=== PATIENT | male | born 1980 | race Two or more races ===

== ENCOUNTER 2017-05-01 22:20 | Emergency (ER) | payer OTHER ==
--- NOTE | 2017-05-01 22:25 | PDOC ---
History of Present Illness - General Chief Complaint: Pain, Acute Stated Complaint: FELL OFF HORSE PAIN LEFT HIP Time Seen by Provider: 05/01/17 22:24 - History of Present Illness Initial Comments: This 36-year-old man with a history of cyclic vomiting syndrome in the past, but no other significant past medical history, presents with history of falling off a horse yesterday. Patient was visiting in [place] when horse he was riding bucked and he fell off, striking his left lower back. He had no head or neck injury and denies loss of consciousness/headache/neck pain. Patient states that he was able to ambulate after the accident and in fact drove himself home from [place] today. He now presents with pain in his left lower back/buttock/pelvic area. He is able to ambulate although he this increases his back pain somewhat. He also describes discomfort in the right medial portion of his clavicle. Patient has a history of sternoclavicular separation in high school; patient did not directly impact clavicle on falling but has pain in the area now. He has no shortness of breath/anterior chest pain/ abdominal pain. He has had no nausea/vomiting. Past History - Past Medical History Allergies/Adverse Reactions: Allergies Allergy/AdvReac Type Severity Reaction Status Date / Time No Known Allergies Allergy Verified 05/01/17 22:21 Home Medications: Ambulatory Orders Diclofenac Sodium [Voltaren -] 75 mg PO BID #20 tablet. 05/01/17 Divalproex *ER* [Depakote *ER* -] 1,000 mg PO BID 05/01/17 Review of Systems - Review of Systems Able to Perform ROS?: Yes Comments:: 12 point review of systems is negative except for what is noted in the history of present illness *Physical Exam - Physical Exam Comments: GENERAL: Adult male, alert and oriented 3, in no acute distress HEAD: Normal with no signs of trauma. EYES: PERRLA, EOMI, sclera anicteric, conjunctiva clear. ENT: Ears normal, nares patent, oropharynx clear without exudates. Moist mucous membranes. NECK: Normal range of motion, supple without lymphadenopathy, JVD, or masses. CHEST WALL: Mild tenderness/minimal edema right sternoclavicular joint; no deformity of the right clavicle present no other chest wall tenderness; No crepitus or step offs palpated LUNGS: Breath sounds equal, clear to auscultation bilaterally. No wheezes, and no crackles. HEART:Regular rate and rhythm, normal S1 and S2 without murmur, rub or gallop. ABDOMEN:.normal bowel sounds No guarding,tenderness or rebound.No masses No distention. EXTREMITIES: Normal range of motion, no edema. No clubbing or cyanosis. No erythema, or tenderness. NEUROLOGICAL: Cranial nerves II through XII grossly intact. Normal speech. No focal neurological deficits. MUSCULOSKELETAL: Mild tenderness midline L4/5 without deformity palpated; mild tenderness of left paraspinal muscles lumbar region Mild tenderness of sacroiliac joint left side; mild tenderness left iliac crest No tenderness of the anterior left hip joint; mild pain at hip with abduction/adduction of left leg SKIN: Warm, Dry, normal turgor, no rashes or lesions noted. Progress Note - Progress Note Progress Note: This 36-year-old man presents with a history of falling off a horse yesterday. Patient has been able to ambulate and drove himself home from [place] today. He now has persistent pain in his left lower back/buttock/pelvic area. He has had no numbness/weakness/pain in either lower extremity. Lumbosacral spine and left pelvis plus hip x-ray performed. Also, because of patient's pain in the area previous sternoclavicular separation (right side), right clavicle x-ray performed. No evidence of acute fracture or dislocation present. Because of the patient's history of taking Depakote, although one dose of Toradol IM 60 mg was planned, this was ultimately not given because patient and his are concerned about additive renal toxicity of the 2 medications. A prescription for diclofenac 75 mg (#20) to be taken up to twice a day with food for pain and was sent to patient's pharmacy, patient likewise stated that he would probably not fill this prescription. Patient will follow-up with orthopedist(referral information for John Ocasio/ [facility] was given to the patient) *DC/Admit/Observation/Transfer Diagnosis at time of Disposition: Strain of muscle, fascia and tendon of lower back, sequela Contusion of left hip Qualifiers: Encounter type: initial encounter Qualified Code(s): S70.02XA - Contusion of left hip, initial encounter Contusion of right clavicle Qualifiers: Encounter type: initial encounter Qualified Code(s): S40.011A - Contusion of right shoulder, initial encounter - Discharge Dispostion Disposition: HOME Condition at time of disposition: Stable - Prescriptions Prescriptions: Diclofenac Sodium [Voltaren -] 75 mg PO BID #20 tablet.dr - Referrals Referrals: Oli Ocasio MD [Staff Physician] - Call tomorrow - Patient Instructions Printed Discharge Instructions: Contusion Additional Instructions: avoid strenuous activity for the next week motrin/aleve/tylenol as needed for mild to moderate pain diclofenac 75mg twice a day for more severe pain(take with food) followup with Dr Ocasio/ Dr Falcon(orthopedists) within 2-3 days
[2017-05-01 22:28] VITALS: BP 156/110; PULSE 97; TEMP 98.1; BMI 25.1
[2017-05-01] MEDS ORDERED: KETOROLAC TROMETHAMINE 60 MG/2 ML VIAL IM ONE (23:34)
[2017-05-01] MEDS ORDERED: KETOROLAC TROMETHAMINE 60 MG/2 ML VIAL ONE (23:37)
== END 2017-05-02 00:17 | disposition home or self-care (01) ==
LOC: FER 22:20
DX: S39.012A Strain of muscle, fascia and tendon of lower back, initial encounter (principal); S70.02XA Contusion of left hip, initial encounter; S40.011A Contusion of right shoulder, initial encounter; V80.010A Animal-rider injured by fall from or being thrown from horse in noncollision accident, initial encounter; Y93.52 Activity, horseback riding; Y92.9 Unspecified place or not applicable
CPT/HCPCS: 72100-TC; 73000-TC-RT; 73523-TC; 99281-25

== ENCOUNTER 2018-06-12 15:26 | Emergency (ER) | payer OTHER ==
[2018-06-12] MEDS ORDERED: SODIUM CHLORIDE 1,000 ML IV STA ×2 (15:37→16:40)
[2018-06-12 15:39] VITALS: TEMP 98.6; BMI 23.6
--- NOTE | 2018-06-12 15:46 | PDOC ---
Attending Attestation - Resident Resident Name: Saadia White - ED Attending Attestation I have performed the following: I have examined & evaluated the patient, The case was reviewed & discussed with the resident, I agree w/resident's findings & plan, Exceptions are as noted - HPI HPI: 06/12/18 18:07 37-year-old male with a history of an cannabinoid hyperemesis syndrome presents to the emergency department with epigastric abdominal pain and global onset generalized headache. Patient states symptoms are identical to previous exacerbations of his cannabinoid hyperemesis syndrome. Smokes marijuana 1x/wk - Physicial Exam PE: 06/12/18 15:46 agree with resident exam - Medical Decision Making 06/12/18 17:19 37yo M hx cannabinoid hypermesis syndrome presents to the ED with N/V, headache , similar to previous exacerbations. 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 Abd exam with no ttp. Lipase negative. Will hydrate pt with 2L NS, treat sxs, PO chall and reassess. 06/12/18 18:31 Pt feeling much better, requests DC home, tolerating PO. BP was elevated on arrival, but pt was vomiting. Rpt BP 170s/90s - instructed pt to discuss with PMD as he needs a repeat BP check Pt well appearing I discussed the physical exam findings, ancillary test results and final diagnoses with the patient. I answered all of the patient's questions. The patient was satisfied with the care received and felt comfortable with the discharge plan and treatment plan. The patient will call their primary care physician within 24 hours to arrange follow-up and will return to the Emergency Department with any new, persistent or worsening symptoms.
[2018-06-12 16:01] LABS: BASO % 1.5 % (0-2.0); HEMOGLOBIN 17.3 GM/dl (11.7-16.9); LYMPH % 14.1 % (8-40); MCH 30.8 pg (25.7-33.7); MCHC 33.2 g/dl (32.0-35.9); MEAN CELL VOLUME 92.7 fl (80-96); MEAN PLT VOLUME 9.5 fl (7.5-11.1); MONO % 3.9 % (3.8-10.2); NEUT % 80.5 % (42.8-82.8); PLATELET COUNT 431 K/MM3 (134-434); RBC 5.61 M/mm3 (4.00-5.60); RDW 12.9 % (11.9-15.9); WHITE BLOOD COUNT 16.3 K/mm3 (4.0-10.8)
--- NOTE | 2018-06-12 16:01 | PDOC ---
History of Present Illness - General Chief Complaint: Nausea/Vomiting Stated Complaint: VOMITING Time Seen by Provider: 06/12/18 15:38 History Source: Patient Exam Limitations: No Limitations - History of Present Illness Initial Comments: 06/12/18 15:50 This is a 37 YOM with long-standing h/o cannabinoid hyperemesis/cyclic vomiting/ abdominal migraines, WENDY, and GERD (takes prilosec) who p/w upper abdominal pain , headache with photophobia and phonophobia, and about 15 episodes NBNB vomiting onset this morning which is exactly the same as his prior flares of the aforementioned diagnoses. He was last seen in the [facility] in 02/2018 for the same symptoms (at which time he also had mild hyperglycemia and an WENDY and he did not want to stay in the hospital). He has not taken any medications for his symptoms today because he knew he would not be able to keep them down. He normally gets relief in the ED with IVF and Reglan and Benadryl. He notes that at home, he takes prophylactic Depakote 1000mg bid, and he was not able to take his dose this morning 2/2 vomiting. (He used to be better controlled on 200 mg Depakote bid but his outpatient provider decreased the dose in January, and ever since this timeIf he has a milder episode at home, he sometimes tries a hot shower, Reglan, and Benadryl with relief. He has not run out of medications lately. He denies any f/c, chest pain, SOB, SOB, neck pain, diarrhea, constipation, black/bloody stool, or change in appetite or other symptoms prior to the onset this morning. He smokes marijuana about once every week and this is less than he used to smoke. Past History - Past Medical History Allergies/Adverse Reactions: Allergies Allergy/AdvReac Type Severity Reaction Status Date / Time No Known Allergies Allergy Verified 12/30/17 23:18 Home Medications: Ambulatory Orders Divalproex *ER* [Depakote *ER* -] 1,000 mg PO BID 05/01/17 COPD: No GI Disorders: Yes (CYCLIC VOMITING) - Suicide/Smoking/Psychosocial Hx Smoking History: Current some day smoker Have you smoked in the past 12 months: Yes Number of Cigarettes Smoked Daily: 2 Information on smoking cessation initiated: Yes 'Breaking Loose' booklet given: 05/02/17 Hx Alcohol Use: No Drug/Substance Use Hx: Yes (MARIJUANA) Substance Use Type: Marijuana Review of Systems - Review of Systems Able to Perform ROS?: Yes Constitutional: Yes: Malaise. No: Chills, Fever, Unexplained wgt Loss HEENTM: No: Nose Congestion, Throat Pain Respiratory: No: Cough, Shortness of Breath Cardiac (ROS): No: Chest Pain, Palpitations ABD/GI: Yes: Nausea, Vomiting, Other (abdominal discomfort). No: Constipated, Diarrhea : No: Burning, Dysuria Musculoskeletal: No: Back Pain, Neck Pain Integumentary: No: Bruising, Rash Neurological: Yes: Headache, Other (photophobia, phonophobia). No: Numbness, Tingling, Weakness, Dizziness Endocrine: No: Unexplained Weight Gain, Unexplained Weight Loss *Physical Exam - Vital Signs Last Vital Signs Temp Pulse Resp BP Pulse Ox 98.6 F 93 H 18 194/118 98 06/12/18 15:28 06/12/18 15:28 06/12/18 15:28 06/12/18 15:28 06/12/18 15:28 Heart Score/ECG Review #1 06/12/18 15:45 NSR, rate of 88, normal axis and intervals, meets criteria for LVH but this is likely body habitus ED Treatment Course - LABORATORY CBC & Chemistry Diagram: 06/12/18 15:30 06/12/18 15:30 Medical Decision Making - Medical Decision Making Pt with cyclic vomiting/abdominal migraine/cannabis hyperemesis p/w abdominal pain, nausea, vomiting like their prior flares. Initial Vital Signs Temp Pulse Resp BP Pulse Ox 98.6 F 93 H 18 194/118 98 06/12/18 15:28 06/12/18 15:28 06/12/18 15:28 06/12/18 15:28 06/12/18 15:28 Exam: As noted in Physical Exam section.appears uncomfortable, holding upper abdomen with arms, intermittently actively vomiting (NBNB) DDX IBNLT: Gastroparesis (e.g. precipitated by stress, infection, etc), DKA, HHS , infection/inflammation/sepsis (i.e. UTI/pyelonephritis, PNA, bronchitis, skin infection, pancreatitis, cholecystitis, etc), EtOH or drug use or withdrawal, biliary tract obstruction, SBO, ACS, etc. W/U ordered: FSBG CBCD CMP Mg Phos Serum Acetone Trop CK CKMB ABG EKG CXR UA UCx Lactate BCx hCG Initial TX ordered: IVF Reglan Benadryl erythromycin/azithromycin Zofran Haldol EKG: Reviewed; results as noted in ECG Review section. CXR: Laboratory Tests 06/12/18 06/12/18 15:30 15:30 WBC 16.3 H RBC 5.61 H Hgb 17.3 H Hct 52.0 H MCV 92.7 MCH 30.8 MCHC 33.2 RDW 12.9 Plt Count 431 MPV 9.5 Absolute Neuts (auto) 13.2 Neutrophils % 80.5 Lymphocytes % 14.1 D Monocytes % 3.9 Eosinophils % 0.0 Basophils % 1.5 Sodium 136 Potassium 4.4 Chloride 98 Carbon Dioxide 24 Anion Gap 14 BUN 17 Creatinine 1.6 H Creat Clearance w eGFR 48.62 Random Glucose 141 H Calcium 11.0 H Magnesium 1.9 Total Bilirubin 0.9 AST 21 D ALT 24 D Alkaline Phosphatase 70 Total Protein 9.9 H Albumin 5.4 H Lipase 124 Vital Signs Temperature 98.6 F 06/12/18 15:28 Pulse Rate 95 H 06/12/18 17:00 Respiratory Rate 18 06/12/18 17:00 Blood Pressure 172/92 06/12/18 17:00 O2 Sat by Pulse Oximetry (%) 96 06/12/18 17:00 06/12/18 18:14 Patient got significant relief with NS x2 liters and Reglan. This patient has gotten significant relief of symptoms while in the ED. On last reassessment, vitals are wnl, pain is reasonably controlled, and repeat abdominal exam is benign. Workup is not concerning for emergency-level pathology at this time. This patient is appropriate for discharge with close outpatient follow up. They are comfortable with this plan and will follow up with their primary care provider in 1-3 days. Specific return precautions are discussed and they will come back to the ER if necessary. *DC/Admit/Observation/Transfer Diagnosis at time of Disposition: Cannabinoid hyperemesis syndrome, WENDY (acute kidney injury) Leukocytosis Qualifiers: Leukocytosis type: unspecified Qualified Code(s): D72.829 - Elevated white blood cell count, unspecified - Discharge Dispostion Condition at time of disposition: Good Decision to Admit order: No - Referrals Referrals: Luna Carrasco [Primary Care Provider] - - Patient Instructions Printed Discharge Instructions: DI for Vomiting -- Adult, DI for Abdominal Pain -Adult Additional Instructions: YOU WERE SEEN IN THE ER FOR VOMITING AND ABDOMINAL PAIN LIKE YOUR PRIOR FLARE- UPS. WE GAVE YOU MEDICATIONS IN THE ER WHICH HELPED YOUR SYMPTOMS, AND CHECKED YOUR LAB WORK. YOU HAVE ELEVATED KIDNEY LEVELS (CREATININE) BUT THIS IS NOT HIGH IT WAS FOR YOU THE LAST TIME YOU WERE SEEN HERE IN THE ER. AFTER OUR ASSESSMENT, WE DO NOT BELIEVE YOU ARE HAVING A MEDICAL EMERGENCY AT THIS TIME, AND WE BELIEVE YOU ARE SAFE TO GO HOME. PLEASE STOP SMOKING MARIJUANA COMPLETELY AND SEE IF THIS RESOLVES YOUR FREQUENT FLARE-UPS. TAKE A MULTI- VITAMIN AND STAY WELL-HYDRATED. TAKE YOUR DEPAKOTE PRESCRIBED AND USE THE MEDICATIONS YOU HAVE ALREADY AT YOUR HOUSE FOR YOUR SYMPTOMS IF NEEDED. PLEASE FOLLOW UP WITH YOUR PRIMARY CARE PROVIDER IN 1-3 DAYS. CALL THEIR CLINIC SOON POSSIBLE, TELL THEM YOU WERE SEEN IN THE ER, AND TELL THEM YOU NEED AN APPOINTMENT. PLEASE TALK WITH YOUR DOCTOR ABOUT CHANGING YOUR DEPAKOTE DOSE BACK. IF YOU HAVE ANY NEW OR WORSENING SYMPTOMS, ESPECIALLY VOMITING BLOOD, RECTAL BLEEDING, SEVERE ABDOMINAL PAIN, OR OTHER SYMPTOMS, PLEASE COME BACK TO THE ER AT ANY TIME (24 HOURS A DAY). IF YOU ARE HAVING SEVERE OR LIFE THREATENING SYMPTOMS, OR SYMPTOMS THAT MAKE IT UNSAFE TO DRIVE OR HAVE SOMEONE DRIVE YOU, PLEASE CALL 911. - Post Discharge Activity
[2018-06-12 16:14] LABS: ALBUMIN 5.4 g/dl (3.5-5.0); ALK PHOS 70 U/L (32-92); ANION GAP 14 MMOL/L (8-16); BILIRUBIN,TOTAL 0.9 mg/dl (0.2-1.0); BLOOD UREA NITROGEN 17 mg/dl (7-18); CHLORIDE 98 mmol/L (98-107); CO2 24 mmol/L (22-28); CREATININE 1.6 mg/dl (0.6-1.3); GLUCOSE,RANDOM 141 mg/dl (74-106); MAGNESIUM 1.9 mg/dL (1.8-2.4); POTASSIUM 4.4 mmol/L (3.5-5.1); SGOT/AST 21 U/L (10-42); SGPT/ALT 24 U/L (10-40); SODIUM 136 mmol/L (136-145); TOT PROT 9.9 g/dl (6.4-8.3)
[2018-06-12] MEDS ORDERED: METOCLOPRAMIDE HCL INJECTION 10 MG/2 ML VIAL IVPUSH ONE (16:41)
[2018-06-12 17:04] VITALS: BP 172/92; PULSE 95
[2018-06-12 17:42] LABS: LIPASE 124 U/L (73-393)
--- NOTE | 2018-06-14 11:43 | EKG ---
Test Reason : Blood Pressure : / mmHG Vent. Rate : 088 BPM Atrial Rate : 088 BPM P-R Int : 148 ms QRS Dur : 088 ms QT Int : 356 ms P-R-T Axes : 063 085 049 degrees QTc Int : 430 ms NORMAL SINUS RHYTHM MINIMAL VOLTAGE CRITERIA FOR LVH, MAY BE NORMAL VARIANT BORDERLINE ECG NO PREVIOUS ECGS AVAILABLE Confirmed by BRYSON HERNANDEZ MD ([id number]) on 06/14/2018 11:42:52 AM Referred By: Confirmed By:BRYSON HERNANDEZ MD
== END 2018-06-12 18:26 | disposition home or self-care (01) ==
LOC: FER 15:26 → SUPCPDRO 15:26 → FER 18:26
PROC: 3E033GC Introduction of Other Therapeutic Substance into Peripheral Vein, Percutaneous Approach (ICD-10-PCS; principal; 2018-06-12)
PROC: 3E0337Z Introduction of Electrolytic and Water Balance Substance into Peripheral Vein, Percutaneous Approach (ICD-10-PCS; 2018-06-12)
DX: D72.829 Elevated white blood cell count, unspecified (principal); F12.188 Cannabis abuse with other cannabis-induced disorder; S37.009A Unspecified injury of unspecified kidney, initial encounter; F17.210 Nicotine dependence, cigarettes, uncomplicated
CPT/HCPCS: 36415; 80053; 83690; 83735; 85025; 93005; 99283-25; J7030

== ENCOUNTER 2018-08-13 07:07 | Emergency (ER) | payer OTHER ==
[2018-08-13 07:16] VITALS: TEMP 99.3; BMI 23.6
[2018-08-13] MEDS ORDERED: SODIUM CHLORIDE 1,000 ML IV STA ×2 (07:19→08:44)
[2018-08-13] MEDS ORDERED: ONDANSETRON 4 MG/2 ML VIAL IVPB ONE (07:19)
--- NOTE | 2018-08-13 07:24 | PDOC ---
History of Present Illness - General Chief Complaint: Nausea/Vomiting Stated Complaint: NAUSEA/VOMITING Time Seen by Provider: 08/13/18 07:10 History Source: Patient Exam Limitations: No Limitations - History of Present Illness Travel History: No Initial Comments: 08/13/18 07:20 38 y/o male with past medical history of cyclical vomiting presents with vomiting sice 3 pm yesterday. Denies traveling, sick contacts, fall or trauma. No diarrhea. No blood in vomit. No fever or chills. Denies back pain, chest pain or SOB. Has not taken anything for this. Feels dehydrated. States his kidney function is usually elevated and signs himself out AMA. Timing/Duration: reports: constant Quality: reports: moderate Pain Radiation: reports: no radiation Activities at Onset: reports: none Treatment Prior to Arrive: worse with: analgesics, antacids, cold pack, heat, laxative, enema, other Aggravating Factors: improves with: None Past History - Past Medical History Allergies/Adverse Reactions: Allergies Allergy/AdvReac Type Severity Reaction Status Date / Time No Known Allergies Allergy Verified 08/13/18 07:11 Home Medications: Ambulatory Orders Divalproex *ER* [Depakote *ER* -] 1,000 mg PO DAILY 05/01/17 COPD: No GI Disorders: Yes (CYCLIC VOMITING) - Suicide/Smoking/Psychosocial Hx Smoking History: Current some day smoker Have you smoked in the past 12 months: Yes Number of Cigarettes Smoked Daily: 2 Information on smoking cessation initiated: Yes 'Breaking Loose' booklet given: 08/13/18 Hx Alcohol Use: Yes Drug/Substance Use Hx: Yes Substance Use Type: Marijuana Review of Systems - Review of Systems Able to Perform ROS?: Yes Is the patient limited Ivorian proficient: No Constitutional: No: Chills, Fever Respiratory: No: Cough, Shortness of Breath Cardiac (ROS): No: Chest Pain ABD/GI: Yes: Nausea, Vomiting, Abdominal cramping. No: Diarrhea : No: Burning, Dysuria Musculoskeletal: No: Back Pain All Other Systems: Reviewed and Negative *Physical Exam - Vital Signs Last Vital Signs Temp Pulse Resp BP Pulse Ox 99.3 F 133 H 18 177/123 H 97 08/13/18 07:08 08/13/18 07:08 08/13/18 07:08 08/13/18 07:08 08/13/18 07:08 - Physical Exam General Appearance: Yes: Nourished, Appropriately Dressed, Mild Distress. No: Disheveled HEENT: positive: EOMI, CRYSTAL, Normal ENT Inspection, Normal Voice, Symmetrical, Pharynx Normal Neck: positive: Trachea midline, Normal Thyroid, Supple. negative: Tender, Rigid, Carotid bruit Respiratory/Chest: positive: Lungs Clear, Normal Breath Sounds. negative: Chest Tender, Respiratory Distress Cardiovascular: positive: Regular Rhythm, S1, S2, Tachycardia. negative: Regular Rate, Edema, JVD, Murmur Vascular Pulses: Femoral (R): 4+, Femoral (L): 4+, Carotid (R): 4+, Carotid (L) : 4+, Dorsalis-Pedis (R): 4+, Doralis-Pedis (L): 4+ Gastrointestinal/Abdominal: positive: Normal Bowel Sounds, Flat, Soft. negative : Tender, Organomegaly, Pulsatile Mass, Tenderness (soft non tender, no RLQ, LLQ or RUQ or LUQ tenderness, +BS, no mid epigastric tenderness noted) Lymphatic: negative: Adenopathy, Tenderness, Other Musculoskeletal: positive: CVA Tenderness (L). negative: CVA Tenderness Extremity: positive: Normal Capillary Refill, Normal Inspection, Normal Range of Motion. 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 Patient is in agreement with plan. Pt is feeling better. No vomiting Discussed labs with patient, elevated Cr and Calcium Pt refuses admission, risks and benefits discussed with patient, pt states he sees a specialist. Pt signed out AMA *DC/Admit/Observation/Transfer Diagnosis at time of Disposition: Hypercalcitonemia Renal failure, acute Qualifiers: Acute renal failure type: unspecified Qualified Code(s): N17.9 - Acute kidney failure, unspecified Cyclic vomiting syndrome Qualifiers: Vomiting Intractability: intractable Nausea presence: with nausea Qualified Code(s): G43.A1 - Cyclical vomiting, intractable - Discharge Dispostion Disposition: AGAINST MEDICAL ADVICE Condition at time of disposition: Stable Decision to Admit order: No - Referrals - Patient Instructions Printed Discharge Instructions: DI for Vomiting -- Adult, Acute Renal Failure, DI for Hypercalcemia Additional Instructions: Fluids, rest, Tylenol If worsen return to ER for admission - Post Discharge Activity
[2018-08-13] MEDS ORDERED: ONDANSETRON 4 MG/2 ML VIAL ONE (07:27)
[2018-08-13 08:48] LABS: ALBUMIN 5.5 g/dl (3.5-5.0); ALK PHOS 72 U/L (32-92); ANION GAP 22 MMOL/L (8-16); BILIRUBIN,TOTAL 0.9 mg/dl (0.2-1.0); BLOOD UREA NITROGEN 17 mg/dl (7-18); CALCIUM 11.3 mg/dl (8.4-10.2); CHLORIDE 93 mmol/L (98-107); CO2 23 mmol/L (22-28); CREATININE 3.1 mg/dl (0.6-1.3); GLUCOSE,RANDOM 167 mg/dl (74-106); POTASSIUM 4.5 mmol/L (3.5-5.1); SGOT/AST 30 U/L (10-42); SGPT/ALT 23 U/L (10-40); SODIUM 138 mmol/L (136-145); TOT PROT 9.7 g/dl (6.4-8.3)
[2018-08-13 08:59] LABS: BASO % 0.3 % (0-2.0); HEMATOCRIT 51.8 % (35.4-49); HEMOGLOBIN 17.1 GM/dl (11.7-16.9); LYMPH % 11.1 % (8-40); MCH 30.6 pg (25.7-33.7); MEAN CELL VOLUME 92.7 fl (80-96); MEAN PLT VOLUME 10.4 fl (7.5-11.1); MONO % 2.7 % (3.8-10.2); NEUT % 85.9 % (42.8-82.8); PLATELET COUNT 397 K/MM3 (134-434); RBC 5.58 M/mm3 (4.00-5.60); RDW 13.8 % (11.9-15.9); WHITE BLOOD COUNT 19.6 K/mm3 (4.0-10.8)
[2018-08-13 09:20] VITALS: BP 177/107; PULSE 97
[2018-08-13 12:12] LABS: LIPASE 198 U/L (73-393)
== END 2018-08-13 09:27 | disposition left against medical advice (07) ==
LOC: FER 07:07
PROC: 3E033GC Introduction of Other Therapeutic Substance into Peripheral Vein, Percutaneous Approach (ICD-10-PCS; principal; 2018-08-13)
PROC: 3E0337Z Introduction of Electrolytic and Water Balance Substance into Peripheral Vein, Percutaneous Approach (ICD-10-PCS; 2018-08-13)
DX: R82.994 Hypercalciuria (principal); N17.9 Acute kidney failure, unspecified; G43.A1 Cyclical vomiting, in migraine, intractable
CPT/HCPCS: 36415; 80053; 83690; 85025; 99282-25; J7030

== ENCOUNTER 2018-08-14 09:55 | Inpatient (IN) | payer OTHER ==
[2018-08-14] MEDS ORDERED: SODIUM CHLORIDE 1,000 ML IV STA (09:59)
--- NOTE | 2018-08-14 10:01 | PDOC ---
History of Present Illness - General Chief Complaint: Nausea/Vomiting Stated Complaint: DEHYDRATION, N/V Time Seen by Provider: 08/14/18 09:56 - History of Present Illness Initial Comments: 08/14/18 10:23 38yo M hx abdominal migraines, cyclical vomiting presents to the ED with vomiting, diffuse body cramping, and feeling dehydrated. Pt was seen here for the same yesterday, found to have an WENDY with nursing clerk to 3.1 (from 1.5) as well as hypercalcemia. Pt was offered admission given metabolic abnormalities but felt better and elected to go home. Pt reports 3 more episodes of NB emesis since yesterday. Reports he feels cramping all over his body. Was previously on 2 grams of depakote for his abd migraines which was cut down last year to 1G. He notes starting a new migraine medication Aimovig last month which has controlled his migraines but not his cyclical vomiting. Pt also reports smoking marijuana a few days ago prior to symptoms. ADmits he has been told in the past that this is contributing to his cyclical vomiting but states it has been difficult to give up. Denies focal abd pain. Last BM was 2 days ago. Denies fevers, chills, cp, sob, headache, LE edema, calf pain. Past History - Past Medical History Allergies/Adverse Reactions: Allergies Allergy/AdvReac Type Severity Reaction Status Date / Time No Known Allergies Allergy Verified 08/13/18 07:11 Home Medications: Ambulatory Orders Divalproex *ER* [Depakote *ER* -] 1,000 mg PO DAILY 05/01/17 Erenumab-Aooe [Aimovig Autoinjector] 70 mg SQ MONTHLY 08/14/18 COPD: No GI Disorders: Yes (CYCLIC VOMITING) - Suicide/Smoking/Psychosocial Hx Smoking History: Current every day smoker Have you smoked in the past 12 months: Yes Number of Cigarettes Smoked Daily: 2 Information on smoking cessation initiated: Yes 'Breaking Loose' booklet given: 08/14/18 Hx Alcohol Use: Yes Drug/Substance Use Hx: Yes Substance Use Type: Marijuana Review of Systems - Review of Systems Comments:: 08/14/18 10:30 GENERAL/CONSTITUTIONAL: No fever or chills. No weakness. Diffuse abd pain HEAD, EYES, EARS, NOSE AND THROAT: No change in vision. No ear pain or discharge. No sore throat. GASTROINTESTINAL: + nausea, vomiting, no diarrhea or constipation. GENITOURINARY: No dysuria, frequency, or change in urination. CARDIOVASCULAR: No chest pain or shortness of breath. RESPIRATORY: No cough, wheezing, or hemoptysis. MUSCULOSKELETAL: No joint or muscle swelling or pain. No neck or back pain. SKIN: No rash NEUROLOGIC: No headache, vertigo, loss of consciousness, or change in strength/ sensation. ENDOCRINE: No increased thirst. No abnormal weight change. HEMATOLOGIC/LYMPHATIC: No anemia, easy bleeding, or history of blood clots. ALLERGIC/IMMUNOLOGIC: No hives or skin allergy. *Physical Exam - Physical Exam Comments: 08/14/18 10:30 GENERAL: Awake, alert, and fully oriented, appears uncomfortable. Thin, eyes sunken in EYES: PERRLA, EOMI, sclera anicteric, conjunctiva clear ENT: Nares patent, oropharynx clear without exudates. Dry MM NECK: Normal ROM, supple, no lymphadenopathy, JVD, or masses LUNGS: Breath sounds equal, clear to auscultation bilaterally. No wheezes, and no crackles HEART: Tachycardic but regular, normal S1 and S2, no murmurs, rubs or gallops ABDOMEN: Soft, nontender, normoactive bowel sounds. No guarding, no rebound. No masses EXTREMITIES: Normal range of motion, no edema. No clubbing or cyanosis. No cords, erythema, or tenderness NEUROLOGICAL: Normal speech, cranial nerves intact, 5/5 strength in all 4 extremities, normal sensation to light touch in all 4 extremities, normal gait SKIN: Warm, Dry, normal turgor, no rashes or lesions noted. Heart Score/ECG Review #1 08/14/18 11:04 Twelve-lead EKG was performed and reviewed by me. Sinus tachycardia, rate 107. Normal axis. No ST elevations. ED Treatment Course - LABORATORY CBC & Chemistry Diagram: 08/14/18 10:16 08/14/18 10:16 Medical Decision Making - Medical Decision Making 08/14/18 10:32 38yo M hx abd migraines, cyclical vomiting prsents to the ED with vomiting, diffuse body cramping. Vitals with tachycardia and HTN which pt has had in the past but is not on medication for. Pt looks dehydrated on exam. No focal abd ttp - states cramping abd discomfort is diffuse and feels like his typical abd migraines. Cannabinoid use likely also contributing to sxs. Pt had WENDY to 3.1 and hypercalcemia yesterday which is likely source of cramping, will initiate fluids and anticipate admission. Pt amenable to stay today. 08/14/18 11:01 Ca 11.2, corrected calcium is 9.5 given elevated albumen. Was wnl yesterday too once corrected Labs markedly abnormal however - leukocytosis to 27, nursing clerk up to 4.5, AG 22 AG likely 2/2 WENDY -> metabolic acidosis Ordered CTAP/CXR to r/o mass or infectious cause of leukocytosis and vomiting Lipase normal yesterday 2nd liter LR ordered EKG sinus tachycardia, no ischemia 08/14/18 13:33 CTAP negative for acute pathology Case discussed with Dr. Borges at pt's request who will see pt Case discussed with PULP GRINDER Carlos, she requests we order diltiazem 30mg given elevated BP and HR Pt accepted for admission Case discussed in detail with admitting physician including history, physical exam and ancillary studies. Admitting physician has assumed care for the patient, will follow all pending diagnostics and will complete the evaluation and treatment. *DC/Admit/Observation/Transfer Diagnosis at time of Disposition: Renal failure, acute, Vomiting, Leukocytosis - Discharge Dispostion Condition at time of disposition: Stable Decision to Admit order: Yes - Referrals - Patient Instructions - Post Discharge Activity - Attestations Physician Attestion: 08/14/18 13:46 I, Dr. Adolfo Smallwood MD, attest that this document has been prepared under my direction and personally reviewed by me in its entirety. I further attest, that it accurately reflects all work, treatment, procedures and medical decision -making performed by me.
[2018-08-14] MEDS ORDERED: LACTATED RINGERS SOLUTION 1000 ML INFUS.BAG IV ONE (10:36)
[2018-08-14] MEDS ORDERED: METOCLOPRAMIDE HCL INJECTION 10 MG/2 ML VIAL IVPB ONE (10:38)
[2018-08-14] MEDS ORDERED: METOCLOPRAMIDE HCL INJECTION 10 MG/2 ML VIAL ONE (10:40)
[2018-08-14 10:42] LABS: ALBUMIN 6.1 g/dl (3.5-5.0); ALK PHOS 75 U/L (32-92); ANION GAP 22 MMOL/L (8-16); BILIRUBIN,TOTAL 0.9 mg/dl (0.2-1.0); BLOOD UREA NITROGEN 31 mg/dl (7-18); CALCIUM 11.2 mg/dl (8.4-10.2); CHLORIDE 88 mmol/L (98-107); CO2 19 mmol/L (22-28); CREATININE 4.5 mg/dl (0.6-1.3); GLUCOSE,RANDOM 195 mg/dl (74-106); HEMATOCRIT 54.8 % (35.4-49); HEMOGLOBIN 18.4 GM/dl (11.7-16.9); MCH 30.8 pg (25.7-33.7); MCHC 33.6 g/dl (32.0-35.9); MEAN CELL VOLUME 91.7 fl (80-96); MEAN PLT VOLUME 9.8 fl (7.5-11.1); PLATELET COUNT 383 K/MM3 (134-434); POTASSIUM 4.2 mmol/L (3.5-5.1); RBC 5.97 M/mm3 (4.00-5.60); RDW 13.3 % (11.9-15.9); SGOT/AST 37 U/L (10-42); SGPT/ALT 26 U/L (10-40); SODIUM 129 mmol/L (136-145); TOT PROT 10.5 g/dl (6.4-8.3); WHITE BLOOD COUNT 26.7 K/mm3 (4.0-10.8)
[2018-08-14 11:04] LABS: PLATELET ESTIMATE ADEQUATE
[2018-08-14] MEDS ORDERED: dilTIAZem HCL 30 MG TABLET (FP) PO ONE (13:30)
[2018-08-14] MEDS ORDERED: dilTIAZem HCL 30 MG TABLET (FP) ONE (13:32)
[2018-08-14] MEDS ORDERED: ERENUMAB AOOE 70 MG SQ SCH (13:45)
--- NOTE | 2018-08-14 13:48 | HP ---
CHIEF COMPLAINT: Vomiting PCP: Sara Granados Neuro: Dr. 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 Presented to the ED yesterday with complaint of vomiting, dehydration, and diffuse body crams. tly started on Erenumab-Aooe/Aimovig by his neurologist for abdominal migraine. Presents today to the ED with a complaint of with vomiting, diffuse body cramping, and feeling dehydrated. Patient was seen yesterday in the ED for the same complaint. His Cr was noted to be 3.1 (from 1.5) and it was recommended patient be admitted to the hospital. The patient refused. He was treated with IV fluids and Zofran. Patient went home and the vomiting continued so he returned to the ED today. Patient admits to marijuana use a few days ago. Denies fevers, chills, cp, sob, headache, LE edema, calf pain. Denies abdominal pain. ER course was notable for: (1) BP 180/115, p 100 (2) WBC 26.7 (3) BUN/Cr 31/4.5 (baseline 1.6) Recent Travel: No PAST MEDICAL HISTORY: Cyclic vomiting secondary to marijuana use Abdominal migraine PAST SURGICAL HISTORY: Social History: Smoking: current Alcohol: yes Drugs: nikunjana Family History: Allergies No Known Allergies Allergy (Verified 08/13/18 07:11) HOME MEDICATIONS: Home Medications Medication Instructions Recorded Divalproex *ER* [Depakote *ER* -] 1,000 mg PO DAILY 05/01/17 Erenumab-Aooe [Aimovig 70 mg SQ MONTHLY 08/14/18 Autoinjector] REVIEW OF SYSTEMS CONSTITUTIONAL: Absent: fever, chills, diaphoresis, generalized weakness, malaise, loss of appetite, weight change HEENT: Absent: rhinorrhea, nasal congestion, throat pain, throat swelling, difficulty swallowing, mouth swelling, ear pain, eye pain, visual changes CARDIOVASCULAR: Absent: chest pain, syncope, palpitations, irregular heart rate, lightheadedness , peripheral edema RESPIRATORY: Absent: cough, shortness of breath, dyspnea with exertion, orthopnea, wheezing, stridor, hemoptysis GASTROINTESTINAL: Absent: abdominal pain, abdominal distension, nausea, vomiting, diarrhea, constipation, melena, hematochezia GENITOURINARY: +nausea, vomiting Absent: dysuria, frequency, urgency, hesitancy, hematuria, flank pain, genital pain MUSCULOSKELETAL: +body aches Absent: myalgia, arthralgia, joint swelling, back pain, neck pain SKIN: Absent: rash, itching, pallor HEMATOLOGIC/IMMUNOLOGIC: Absent: easy bleeding, easy bruising, lymphadenopathy, frequent infections ENDOCRINE: Absent: unexplained weight gain, unexplained weight loss, heat intolerance, cold intolerance NEUROLOGIC: Absent: headache, focal weakness or paresthesias, dizziness, unsteady gait, seizure, mental status changes, bladder or bowel incontinence PSYCHIATRIC: Absent: anxiety, depression, suicidal or homicidal ideation, hallucinations. PHYSICAL EXAMINATION Vital Signs - 24 hr 08/14/18 08/14/18 10:20 12:25 Temperature 97.6 F Pulse Rate 115 H Pulse Rate [ 100 H Left Apical] Respiratory 19 18 Rate Blood Pressure 145/115 H Blood Pressure 180/115 H [Left Arm] O2 Sat by Pulse 98 99 Oximetry (%) GENERAL: Awake, alert, and fully oriented, in no acute distress. HEAD: Normal with no signs of trauma. EYES: Pupils equal, round and reactive to light, extraocular movements intact, sclera anicteric, conjunctiva clear. No lid lag. EARS, NOSE, THROAT: Ears normal, nares patent, oropharynx clear without exudates. Moist mucous membranes. NECK: Normal range of motion, supple without lymphadenopathy, JVD, or masses. LUNGS: Breath sounds equal, clear to auscultation bilaterally. No wheezes, and no crackles. No accessory muscle use. HEART: Regular rate and rhythm, normal S1 and S2 without murmur, rub or gallop. ABDOMEN: Soft, nontender, not distended, normoactive bowel sounds, no guarding, no rebound, no masses. No hepatomegaly or splenomegaly. MUSCULOSKELETAL: Normal range of motion at all joints. No bony deformities or tenderness. No CVA tenderness. UPPER EXTREMITIES: 2+ pulses, warm, well-perfused. No cyanosis. No clubbing. No peripheral edema. LOWER EXTREMITIES: 2+ pulses, warm, well-perfused. No calf tenderness. No peripheral edema. NEUROLOGICAL: Cranial nerves II-XII intact. Normal speech. Normal gait. PSYCHIATRIC: Cooperative. Good eye contact. Appropriate mood and affect. SKIN: Warm, dry, normal turgor, no rashes or lesions noted, normal capillary refill. Laboratory Results - last 24 hr 08/14/18 08/14/18 08/14/18 10:16 10:16 10:16 WBC Cancelled 26.7 H Corrected WBC (auto) Cancelled RBC Cancelled 5.97 H Hgb Cancelled 18.4 H Hct Cancelled 54.8 H MCV Cancelled 91.7 MCH Cancelled 30.8 MCHC Cancelled 33.6 RDW Cancelled 13.3 Plt Count Cancelled 383 MPV Cancelled 9.8 Absolute Neuts (auto) 22.4 Neutrophils % No Result Required. Neutrophils % (Manual) 85.0 H Lymphocytes % No Result Required. 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 Admitted for acute kidney injury. Acute kidney injury --baseline 1.6; Cr 3.1 yesterday in ED, 4.5 today at time of admission; this evening 2.6 Hypertensive urgency --BP 180/115 on admission --patient states his blood pressure is high only when he has an episode of cyclic vomiting, does not take regular meds --hydralazine 10mg IVP x 1; 10mg PO TID Rhabdomyalosis --CPK 931 drawn after 1L fluids in --continue IV fluids Hyponatremia --Na 131 corrected Hypomagnesemia --replete Hyperphosphatemia --continue to trend Cyclic vomiting --Utox +marijuana --Zofran PRN --IV fluids Abdominal migraine --seen and evaluated by Dr. Monroy, neuro; start Depacon 500mg IVP q8h --started on Aimovig 70mg subq qmonthly last week FEN Fluids: NS @ 50mL/hr Electrolytes: replete as indicated Nutrition: NPO (tried clears, could not tolerate) DVT prophylaxis: subq heparin (patient presently refusing); SCDs, oob, ambulation Dispo: continues to require inpatient care. Full code.
[2018-08-14 15:06] LABS: PH,URINE 5.5 (4.5-8); URINE APPEARANCE Clear; URINE BILIRUBIN 1+ (NEGATIVE); URINE COLOR Yellow; URINE GLUCOSE (UA) Negative (NEGATIVE); URINE KETONE Trace (NEGATIVE); URINE LEUK ESTERASE Negative (NEGATIVE); URINE NITRITE Negative (NEGATIVE); URINE PROTEIN 2+ (NEGATIVE); URINE UROBILINOGEN 0.2 (0.2-1.0)
[2018-08-14 15:39] LABS: AMORP URATES 1+ /hpf (NONE SEEN); EPI CELLS FEW /HPF
[2018-08-14 15:40] LABS: URINE MUCUS 1+
[2018-08-14 16:13] VITALS: BMI 20.8
--- NOTE | 2018-08-14 16:13 | CON.NEURO ---
Consult Consult Specialty:: NEUROLOGY-HAILEY SMITH Reason for Consultation:: Migraine - History of Present Illness Chief Complaint: Abdominal pain History of Present Illness: 38yo M hx abdominal migraines, cyclical vomiting presents to the ED with vomiting, diffuse body cramping, and feeling dehydrated. Pt was seen here for the same yesterday, found to have an WENDY with lathe puller to 3.1 (from 1.5) as well as hypercalcemia. Pt was offered admission given metabolic abnormalities but felt better and elected to go home. Pt reports 3 more episodes of NB emesis since yesterday. Reports he feels cramping all over his body. Was previously on 2 grams of depakote for his abd migraines which was cut down last year to 1G. He notes starting a new migraine medication Aimovig last month which has controlled his migraines but not his cyclical vomiting. Pt also reports smoking marijuana a few days ago prior to symptoms. ADmits he has been told in the past that this is contributing to his cyclical vomiting but states it has been difficult to give up. Usually he has headache and abdominal pain as a manifestation of his migraine, this time since Aimovig reports only his typical migraine crelated adb. pain and no QUINTERO-has been using excessive marijuana. Denies focal abd pain. Last BM was 2 days ago. Denies fevers, chills, cp, sob, headache, LE edema, calf pain. - Alcohol/Substance Use Hx Alcohol Use: Yes - Smoking History Smoking history: Current every day smoker Have you smoked in the past 12 months: Yes Aproximately how many cigarettes per day: 2 Home Medications - Allergies Allergies/Adverse Reactions: Allergies Allergy/AdvReac Type Severity Reaction Status Date / Time No Known Allergies Allergy Verified 08/13/18 07:11 - Home Medications Home Medications: Ambulatory Orders Divalproex *ER* [Depakote *ER* -] 1,000 mg PO DAILY 05/01/17 Erenumab-Aooe [Aimovig Autoinjector] 70 mg SQ MONTHLY 08/14/18 Physical Exam-Neuro Vital Signs: Vital Signs Temperature 97.8 F 08/14/18 14:45 Pulse Rate 109 H 08/14/18 14:45 Respiratory Rate 18 08/14/18 14:45 Blood Pressure 106/104 H 08/14/18 14:45 O2 Sat by Pulse Oximetry (%) 99 08/14/18 14:45 Labs: CBC, BMP 08/14/18 10:16 08/14/18 10:16 - Neuro Exam DTR's: 2+ Left Bicep, 2+ Right Bicep, 2+ Left Tricep, 2+ Right Tricep, 2+ Left Brachioradialis, 2+ Right Brachioradialis, 2+ Left Achilles, 2+ Right Achilles Motor Strength: 5/5: Left Arm, Right Arm, Left Leg, Right Leg
--- NOTE | 2018-08-14 16:22 | PN ---
Progress Note (short form) - Note Progress Note: A&P: Pt. with abd. migraine, s/p erenumab inj. he likely has trigerring ofr his abd. migraine from marijuana use. Will treat with Depacon 500mg ivss q8hrs and refer for CBT re: marijuana use upon discharge.
[2018-08-14] MEDS ORDERED: hydrALAZINE HCL 20 MG/ML VIAL IVPUSH STA (16:50)
[2018-08-14 16:54] LABS: COCAINE, UR NEGATIVE ng/ml (CUTOFF=300); METHADONE, UR NEGATIVE ng/ml (CUTOFF=300); OPIATES, URI NEGATIVE ng/ml (CUTOFF=300); PHENCYCLIDINE,URINE NEGATIVE ng/ml (CUTOFF=25); URINE AMPHETAMINES NEGATIVE ng/ml (CUTOFF=500); URINE BARBITURATES NEGATIVE ng/ml (CUTOFF=200); URINE BENZODIAZEPINES NEGATIVE ng/ml (CUTOFF=200)
[2018-08-14] MEDS ORDERED: SODIUM CHLORIDE 1,000 ML IV SCH (17:00)
[2018-08-14] MEDS: VALPROATE SODIUM 500 MG/5 ML VIAL IVPB SCH (17:22)
[2018-08-14] MEDS: HEPARIN NA (PORCINE) 5,000 UNITS/ML 1ML VIAL SQ SCH (17:33)
[2018-08-14 17:47] LABS: BLOOD UREA NITROGEN 28 mg/dl (7-18); CREATININE 2.6 mg/dl (0.6-1.3); GLUCOSE,RANDOM 116 mg/dl (74-106)
[2018-08-14 17:48] LABS: ANION GAP 12 MMOL/L (8-16); CALCIUM 9.5 mg/dl (8.4-10.2); CHLORIDE 93 mmol/L (98-107); CO2 25 mmol/L (22-28); MAGNESIUM 1.7 mg/dL (1.8-2.4); PHOSPHOROUS 5.2 mg/dl (2.5-4.6); POTASSIUM 3.9 mmol/L (3.5-5.1); SODIUM 130 mmol/L (136-145)
[2018-08-14] MEDS ORDERED: MAGNESIUM SULF 50% (8.12 MEQ/2 ML-1 GM VIAL) IVPB ONE (17:54)
[2018-08-14] MEDS ORDERED: ONDANSETRON 4 MG/2 ML VIAL IVPUSH PRN (17:58)
--- NOTE | 2018-08-14 18:01 | CONSULT ---
Consult - text type - Consultation Consultation Note: Renal Consult for WENDY on CKD This is a 38 year old gentleman with hx of Abdominal migraines, cyclic vomiting , ? CKD who presented with vomiting and diffuse body cramping and found to have WENDY and Hyponatremia. Pt reports that he has had several episodes similiar to this in the past. Has mild CKD and says his baseline Cr ~1.7. Denies any NSAID use. No contrast history. No flank pain, dysuria. Now able to tolerate oral diet. On IVF now. PMHx: as above Allergies: NKDA Family Hx: NC Social Hx: No T/A/D ROS: as per HPI Home Medications Medication Instructions Recorded Divalproex *ER* [Depakote *ER* -] 1,000 mg PO DAILY 05/01/17 Erenumab-Aooe [Aimovig 70 mg SQ MONTHLY 08/14/18 Autoinjector] Vital Signs Temperature 97.7 F 08/14/18 15:45 Pulse Rate 101 H 08/14/18 15:45 Respiratory Rate 18 08/14/18 15:45 Blood Pressure 158/109 H 08/14/18 15:45 O2 Sat by Pulse Oximetry (%) 99 08/14/18 15:45 Intake & Output 08/11/18 08/12/18 08/13/18 08/14/18 23:59 23:59 23:59 23:59 Intake Total 2000 Output Total 250 Balance 1750 Weight 63.957 kg NAD MMM Neck supple, no JVD tachycardic, no M/R CTA no LE edema CBC, BMP 08/14/18 10:16 08/14/18 17:05 Current Medications Heparin Sodium (Porcine) (Heparin -) 5,000 unit SQ Q8H-IV PÉREZ Last Admin: 08/14/18 17:33 Dose: Not Given Hydralazine HCl (Apresoline -) 10 mg PO TID PÉREZ Sodium Chloride (Normal Saline -) 1,000 mls @ 50 mls/hr IV ASDIR PÉREZ Stop: 08/15/18 16:55 Last Admin: 08/14/18 17:23 Dose: 50 mls/hr Non-Formulary Medication (Erenumab-Aooe [Aimovig Autoinjector]) 70 mg SQ MONTHLY PÉREZ Ondansetron HCl (Zofran Injection) 4 mg IVPUSH Q6H PRN PRN Reason: NAUSEA Valproate Sodium (Depacon Injection -) 500 mg IVPB Q8H-IV PÉREZ Last Admin: 08/14/18 17:22 Dose: 500 mg 38 year old gentleman with hx of Abdominal migranes, cyclic vomiting, ? CKD who presented with vomiting and diffuse body cramping and dehydration #WENDY due to volume depletion in setting of N/V #Hypovolemic Hyponatremia #CKD (baseline cr 1.6) #Vomiting #Abdominal migraines #Hypertension Renal function improving with IVF continue isotonic saline at 100cc per hour Check UPCR, UA Use PRN Labetalol for BP control (200mg for SBP > 150 or DBP > 95) continue valporate as per neurology serum na improving with isotonic saline no indication for 3% saline if renal function improves to baseline, pt able to tolerate oral diet and BP improves can consider discharge with outpatient follow up Josiah Bravo DO
[2018-08-14] MEDS ORDERED: PT OWN MED DRAWER 7, Y5N ONE (19:23)
[2018-08-14] MEDS: LABETALOL HCL 200 MG TABLET (FP) PO SCH (19:27)
[2018-08-14 20:02] LABS: URINE CREATININE 293.2 mg/dL (2-36)
[2018-08-14] MEDS ORDERED: hydrALAZINE HCL 10 MG TABLET PO SCH (22:00)
[2018-08-15] MEDS: VALPROATE SODIUM 500 MG/5 ML VIAL IVPB SCH ×2 (01:23→09:43)
[2018-08-15] MEDS: HEPARIN NA (PORCINE) 5,000 UNITS/ML 1ML VIAL SQ SCH (01:27)
[2018-08-15] MEDS: LABETALOL HCL 200 MG TABLET (FP) PO SCH (05:25)
[2018-08-15 08:14] LABS: EOS % 0.1 % (0-4.5); HEMATOCRIT 44.9 % (35.4-49); HEMOGLOBIN 15.4 GM/dl (11.7-16.9); LYMPH % 18.9 % (8-40); MCH 31.2 pg (25.7-33.7); MCHC 34.3 g/dl (32.0-35.9); MEAN CELL VOLUME 91.1 fl (80-96); MEAN PLT VOLUME 9.4 fl (7.5-11.1); MONO % 8.4 % (3.8-10.2); NEUT % 72.6 % (42.8-82.8); PLATELET COUNT 308 K/MM3 (134-434); RBC 4.94 M/mm3 (4.00-5.60); RDW 13.1 % (11.9-15.9); WHITE BLOOD COUNT 14.8 K/mm3 (4.0-10.8)
--- NOTE | 2018-08-15 08:22 | PN ---
Physical Exam: SUBJECTIVE: Patient seen and examined OBJECTIVE: Vital Signs Period Temp Pulse Resp BP Sys/Wilson Pulse Ox Last 24 Hr 97.6 F-99.1 F 73-115 16-19 106-188/72-115 98-99 Laboratory Results - last 24 hr 08/14/18 08/14/18 08/14/18 10:16 10:16 10:16 WBC Cancelled 26.7 H Corrected WBC (auto) Cancelled RBC Cancelled 5.97 H Hgb Cancelled 18.4 H Hct Cancelled 54.8 H MCV Cancelled 91.7 MCH Cancelled 30.8 MCHC Cancelled 33.6 RDW Cancelled 13.3 Plt Count Cancelled 383 MPV Cancelled 9.8 Absolute Neuts (auto) 22.4 Neutrophils % No Result Required. Neutrophils % (Manual) 85.0 H Lymphocytes % No Result Required. Lymphocytes % (Manual) 10.0 Monocytes % Monocytes % (Manual) 5 Eosinophils % Basophils % Manual Slide Review Cancelled Platelet Estimate Adequate Platelet Comment Cancelled Sodium 129 L Potassium 4.2 Chloride 88 L Carbon Dioxide 19 L Anion Gap 22 H BUN 31 H Creatinine 4.5 H Creat Clearance w eGFR 14.66 Random Glucose 195 H Hemoglobin A1c % Calcium 11.2 H Phosphorus Magnesium 2.0 Total Bilirubin 0.9 AST 37 D ALT 26 Alkaline Phosphatase 75 Creatine Kinase Creatine Kinase Index CK-MB (CK-2) Total Protein 10.5 H Albumin 6.1 H Urine Color Urine Appearance Urine pH Ur Specific Blevins Urine Protein Urine Glucose (UA) Urine Ketones Urine Blood Urine Nitrite Urine Bilirubin Urine Urobilinogen Ur Leukocyte Esterase Urine RBC Urine WBC Ur Epithelial Cells Amorphous Urates Hyaline Casts Urine Mucus U Random Total Protein Urine Creatinine Opiates Screen Methadone Screen Barbiturate Screen Phencyclidine Screen Ur Amphetamines Screen MDMA (Ecstasy) Screen Benzodiazepines Screen Cocaine Screen U Marijuana (THC) Screen 08/14/18 08/14/18 08/14/18 14:40 14:40 16:00 WBC Corrected WBC (auto) RBC Hgb Hct MCV MCH MCHC RDW Plt Count MPV Absolute Neuts (auto) Neutrophils % Neutrophils % (Manual) Lymphocytes % Lymphocytes % (Manual) Monocytes % Monocytes % (Manual) Eosinophils % Basophils % Manual Slide Review Platelet Estimate Platelet Comment Sodium Potassium Chloride Carbon Dioxide Anion Gap BUN Creatinine Creat Clearance w eGFR Random Glucose Hemoglobin A1c % Cancelled Calcium Phosphorus Magnesium Total Bilirubin AST ALT Alkaline Phosphatase Creatine Kinase Creatine Kinase Index CK-MB (CK-2) Total Protein Albumin Urine Color Yellow Urine Appearance Clear Urine pH 5.5 Ur Specific Blevins 1.025 Urine Protein 2+ H Urine Glucose (UA) Negative Urine Ketones Trace Urine Blood 2+ H Urine Nitrite Negative Urine Bilirubin 1+ H Urine Urobilinogen 0.2 Ur Leukocyte Esterase Negative Urine RBC 2-5 Urine WBC 2-5 Ur Epithelial Cells Few Amorphous Urates 1+ Hyaline Casts 3-5 Urine Mucus 1+ U Random Total Protein Urine Creatinine Opiates Screen Negative Methadone Screen Negative Barbiturate Screen Negative Phencyclidine Screen Negative Ur Amphetamines Screen Negative MDMA (Ecstasy) Screen Negative Benzodiazepines Screen Negative Cocaine Screen Negative U Marijuana (THC) Screen Positive A* 08/14/18 08/14/18 08/14/18 17:05 17:05 18:30 WBC Corrected WBC (auto) RBC Hgb Hct MCV MCH MCHC RDW Plt Count MPV Absolute Neuts (auto) Neutrophils % Neutrophils % (Manual) Lymphocytes % Lymphocytes % (Manual) Monocytes % Monocytes % (Manual) Eosinophils % Basophils % Manual Slide Review Platelet Estimate Platelet Comment Sodium 130 L Potassium 3.9 Chloride 93 L Carbon Dioxide 25 D Anion Gap 12 BUN 28 H Creatinine 2.6 H Creat Clearance w eGFR 27.62 Random Glucose 116 H D Hemoglobin A1c % Calcium 9.5 Phosphorus 5.2 H Magnesium 1.7 L Total Bilirubin AST ALT Alkaline Phosphatase Creatine Kinase 931 H Creatine Kinase Index 0.3 CK-MB (CK-2) 3.7 Total Protein Albumin Urine Color Urine Appearance Urine pH Ur Specific Blevins Urine Protein Urine Glucose (UA) Urine Ketones Urine Blood Urine Nitrite Urine Bilirubin Urine Urobilinogen Ur Leukocyte Esterase Urine RBC Urine WBC Ur Epithelial Cells Amorphous Urates Hyaline Casts Urine Mucus U Random Total Protein 25 H Urine Creatinine 293.2 H Opiates Screen Methadone Screen Barbiturate Screen Phencyclidine Screen Ur Amphetamines Screen MDMA (Ecstasy) Screen Benzodiazepines Screen Cocaine Screen U Marijuana (THC) Screen 08/15/18 07:43 WBC 14.8 H Corrected WBC (auto) RBC 4.94 Hgb 15.4 Hct 44.9 D MCV 91.1 MCH 31.2 MCHC 34.3 RDW 13.1 Plt Count 308 MPV 9.4 Absolute Neuts (auto) 10.8 Neutrophils % 72.6 Neutrophils % (Manual) Lymphocytes % 18.9 D Lymphocytes % (Manual) Monocytes % 8.4 D Monocytes % (Manual) Eosinophils % 0.1 D Basophils % 0.0 Manual Slide Review Platelet Estimate Platelet Comment Sodium Potassium Chloride Carbon Dioxide Anion Gap BUN Creatinine Creat Clearance w eGFR Random Glucose Hemoglobin A1c % Calcium Phosphorus Magnesium Total Bilirubin AST ALT Alkaline Phosphatase Creatine Kinase Creatine Kinase Index CK-MB (CK-2) Total Protein Albumin Urine Color Urine Appearance Urine pH Ur Specific Blevins Urine Protein Urine Glucose (UA) Urine Ketones Urine Blood Urine Nitrite Urine Bilirubin Urine Urobilinogen Ur Leukocyte Esterase Urine RBC Urine WBC Ur Epithelial Cells Amorphous Urates Hyaline Casts Urine Mucus U Random Total Protein Urine Creatinine Opiates Screen Methadone Screen Barbiturate Screen Phencyclidine Screen Ur Amphetamines Screen MDMA (Ecstasy) Screen Benzodiazepines Screen Cocaine Screen U Marijuana (THC) Screen Active Medications Generic Name Dose Route Start Last Admin Trade Name Freq PRN Reason Stop Dose Admin Heparin Sodium (Porcine) 5,000 unit 08/14/18 18:00 08/15/18 01:27 Heparin - SQ Not Given Q8H-IV PÉREZ Sodium Chloride 1,000 mls @ 50 mls/hr 08/14/18 17:00 08/14/18 17:23 Normal Saline - IV 08/15/18 16:55 50 mls/hr ASDIR PÉREZ Administration Labetalol HCl 200 mg 08/14/18 18:45 08/15/18 05:25 Normodyne - PO 200 mg TID PÉREZ Administration Non-Formulary Medication 70 mg 08/14/18 13:45 Erenumab-Aooe [Aimovig Autoinjector] SQ MONTHLY PÉREZ Ondansetron HCl 4 mg 08/14/18 17:58 Zofran Injection IVPUSH Q6H PRN NAUSEA Valproate Sodium 500 mg 08/14/18 16:15 08/15/18 01:23 Depacon Injection - IVPB 500 mg Q8H-IV PÉREZ Administration ASSESSMENT/PLAN:
[2018-08-15 08:31] LABS: ANION GAP 10 MMOL/L (8-16); BLOOD UREA NITROGEN 21 mg/dl (7-18); CALCIUM 9.4 mg/dl (8.4-10.2); CHLORIDE 93 mmol/L (98-107); CO2 24 mmol/L (22-28); CREATININE 1.5 mg/dl (0.6-1.3); GLUCOSE,RANDOM 135 mg/dl (74-106); MAGNESIUM 2.5 mg/dL (1.8-2.4); PHOSPHOROUS 3.4 mg/dl (2.5-4.6); POTASSIUM 3.9 mmol/L (3.5-5.1); SODIUM 127 mmol/L (136-145)
[2018-08-15 08:58] LABS: ACTIVATED PTT 28.6 SECONDS (25.2-36.5)
[2018-08-15 09:02] LABS: INR 1.18 (0.82-1.09); PROTHROMBIN TIME (PATIENT) 13.2 SEC (10.2-13.0)
[2018-08-15 09:59] LABS: LIPASE 157 U/L (73-393); N-TERMINAL BNP 466.1 pg/ml (5-125)
[2018-08-15] MEDS ORDERED: DIVALPROEX NA *ER* EXTEND REL 500 MG TABLET.SA (FP) PO SCH (10:00)
[2018-08-15 10:42] VITALS: BP 150/90; PULSE 80; TEMP 97.6
--- NOTE | 2018-08-15 11:06 | DS ---
Physical Exam: SUBJECTIVE: Patient seen and examined OBJECTIVE: Vital Signs Period Temp Pulse Resp BP Sys/Wilson Pulse Ox Last 24 Hr 97.6 F-99.1 F 73-109 16-18 106-188/72-115 99-99 PHYSICAL EXAM GENERAL: The patient is awake, alert, and fully oriented, in no acute distress. HEAD: Normal with no signs of trauma. EYES: PERRL, extraocular movements intact, sclera anicteric, conjunctiva clear. ENT: Ears normal, nares patent, oropharynx clear without exudates, moist mucous membranes. NECK: Trachea midline, full range of motion, supple. LUNGS: Breath sounds equal, clear to auscultation bilaterally, no wheezes, no crackles, no accessory muscle use. HEART: Regular rate and rhythm, S1, S2 without murmur, rub or gallop. ABDOMEN: Soft, nontender, nondistended, normoactive bowel sounds, no guarding, no rebound, no hepatosplenomegaly, no masses. EXTREMITIES: 2+ pulses, warm, well-perfused, no edema. NEUROLOGICAL: Cranial nerves II through XII grossly intact. Normal speech, gait not observed. PSYCH: Normal mood, normal affect. SKIN: Warm, dry, normal turgor, no rashes or lesions noted. LABS Laboratory Results - last 24 hr 08/14/18 08/14/18 08/14/18 10:16 14:40 14:40 WBC RBC Hgb Hct MCV MCH MCHC RDW Plt Count MPV Absolute Neuts (auto) Neutrophils % Neutrophils % (Manual) 85.0 H Lymphocytes % Lymphocytes % (Manual) 10.0 Monocytes % Monocytes % (Manual) 5 Eosinophils % Basophils % Platelet Estimate Adequate PT with INR INR PTT (Actin FS) Sodium Potassium Chloride Carbon Dioxide Anion Gap BUN Creatinine Creat Clearance w eGFR Random Glucose Hemoglobin A1c % Calcium Phosphorus Magnesium Creatine Kinase Creatine Kinase Index CK-MB (CK-2) B-Natriuretic Peptide Lipase TSH Urine Color Yellow Urine Appearance Clear Urine pH 5.5 Ur Specific [place] 1.025 Urine Protein 2+ H Urine Glucose (UA) Negative Urine Ketones Trace Urine Blood 2+ H Urine Nitrite Negative Urine Bilirubin 1+ H Urine Urobilinogen 0.2 Ur Leukocyte Esterase Negative Urine RBC 2-5 Urine WBC 2-5 Ur Epithelial Cells Few Amorphous Urates 1+ Hyaline Casts 3-5 Urine Mucus 1+ U Random Total Protein Urine Creatinine Opiates Screen Negative Methadone Screen Negative Barbiturate Screen Negative Phencyclidine Screen Negative Ur Amphetamines Screen Negative MDMA (Ecstasy) Screen Negative Benzodiazepines Screen Negative Cocaine Screen Negative U Marijuana (THC) Screen Positive A* 08/14/18 08/14/18 08/14/18 16:00 17:05 17:05 WBC RBC Hgb Hct MCV MCH MCHC RDW Plt Count MPV Absolute Neuts (auto) Neutrophils % Neutrophils % (Manual) Lymphocytes % Lymphocytes % (Manual) Monocytes % Monocytes % (Manual) Eosinophils % Basophils % Platelet Estimate PT with INR INR PTT (Actin FS) Sodium 130 L Potassium 3.9 Chloride 93 L Carbon Dioxide 25 D Anion Gap 12 BUN 28 H Creatinine 2.6 H Creat Clearance w eGFR 27.62 Random Glucose 116 H D Hemoglobin A1c % Cancelled Calcium 9.5 Phosphorus 5.2 H Magnesium 1.7 L Creatine Kinase 931 H Creatine Kinase Index 0.3 CK-MB (CK-2) 3.7 B-Natriuretic Peptide Lipase TSH Urine Color Urine Appearance Urine pH Ur Specific [place] Urine Protein Urine Glucose (UA) Urine Ketones Urine Blood Urine Nitrite Urine Bilirubin Urine Urobilinogen Ur Leukocyte Esterase Urine RBC Urine WBC Ur Epithelial Cells Amorphous Urates Hyaline Casts Urine Mucus U Random Total Protein Urine Creatinine Opiates Screen Methadone Screen Barbiturate Screen Phencyclidine Screen Ur Amphetamines Screen MDMA (Ecstasy) Screen Benzodiazepines Screen Cocaine Screen U Marijuana (THC) Screen 08/14/18 08/15/18 08/15/18 18:30 07:43 07:43 WBC 14.8 H RBC 4.94 Hgb 15.4 Hct 44.9 D MCV 91.1 MCH 31.2 MCHC 34.3 RDW 13.1 Plt Count 308 MPV 9.4 Absolute Neuts (auto) 10.8 Neutrophils % 72.6 Neutrophils % (Manual) Lymphocytes % 18.9 D Lymphocytes % (Manual) Monocytes % 8.4 D Monocytes % (Manual) Eosinophils % 0.1 D Basophils % 0.0 Platelet Estimate PT with INR 13.2 H INR 1.18 PTT (Actin FS) 28.6 Sodium Potassium Chloride Carbon Dioxide Anion Gap BUN Creatinine Creat Clearance w eGFR Random Glucose Hemoglobin A1c % Calcium Phosphorus Magnesium Creatine Kinase Creatine Kinase Index CK-MB (CK-2) B-Natriuretic Peptide Lipase TSH Urine Color Urine Appearance Urine pH Ur Specific [place] Urine Protein Urine Glucose (UA) Urine Ketones Urine Blood Urine Nitrite Urine Bilirubin Urine Urobilinogen Ur Leukocyte Esterase Urine RBC Urine WBC Ur Epithelial Cells Amorphous Urates Hyaline Casts Urine Mucus U Random Total Protein 25 H Urine Creatinine 293.2 H Opiates Screen Methadone Screen Barbiturate Screen Phencyclidine Screen Ur Amphetamines Screen MDMA (Ecstasy) Screen Benzodiazepines Screen Cocaine Screen U Marijuana (THC) Screen 08/15/18 07:43 WBC RBC Hgb Hct MCV MCH MCHC RDW Plt Count MPV Absolute Neuts (auto) Neutrophils % Neutrophils % (Manual) Lymphocytes % Lymphocytes % (Manual) Monocytes % Monocytes % (Manual) Eosinophils % Basophils % Platelet Estimate PT with INR INR PTT (Actin FS) Sodium 127 L Potassium 3.9 Chloride 93 L Carbon Dioxide 24 Anion Gap 10 BUN 21 H Creatinine 1.5 H Creat Clearance w eGFR 52.10 Random Glucose 135 H Hemoglobin A1c % Calcium 9.4 Phosphorus 3.4 D Magnesium 2.5 H Creatine Kinase Creatine Kinase Index CK-MB (CK-2) B-Natriuretic Peptide 466.1 H Lipase 157 TSH 0.52 Urine Color Urine Appearance Urine pH Ur Specific [place] Urine Protein Urine Glucose (UA) Urine Ketones Urine Blood Urine Nitrite Urine Bilirubin Urine Urobilinogen Ur Leukocyte Esterase Urine RBC Urine WBC Ur Epithelial Cells Amorphous Urates Hyaline Casts Urine Mucus U Random Total Protein Urine Creatinine Opiates Screen Methadone Screen Barbiturate Screen Phencyclidine Screen Ur Amphetamines Screen MDMA (Ecstasy) Screen Benzodiazepines Screen Cocaine Screen U Marijuana (THC) Screen HOSPITAL COURSE: Date of Admission:08/14/18 Date of Discharge: 08/15/18 Minutes to complete discharge: 35 Discharge Summary Reason For Visit: ACUTE RENAL FAILURE,VOMTING,LEUKOCYTOSIS Current Active Problems Leukocytosis (Acute) Renal failure, acute (Acute) Vomiting (Acute) Condition: Stable - Instructions - Home Medications Comprehensive Discharge Medication List: Ambulatory Orders Divalproex *ER* [Depakote *ER* -] 1,000 mg PO DAILY 05/01/17 Erenumab-Aooe [Aimovig Autoinjector] 70 mg SQ MONTHLY 08/14/18 This patient is new to me today: No Emergency Visit: Yes ED Registration Date: 08/14/18 Care time: The patient presented to the Emergency Department on the above date and was hospitalized for further evaluation of their emergent condition. Critical Care patient: No
--- NOTE | 2018-08-15 12:36 | EKG ---
Test Reason : Blood Pressure : / mmHG Vent. Rate : 107 BPM Atrial Rate : 107 BPM P-R Int : 150 ms QRS Dur : 080 ms QT Int : 324 ms P-R-T Axes : 070 087 046 degrees QTc Int : 432 ms SINUS TACHYCARDIA BIATRIAL ENLARGEMENT ABNORMAL ECG Confirmed by MD KANA, TRACEE ([id number]) on 08/15/2018 12:36:49 PM Referred By: Melida Bejarano Confirmed By:TRACEE ROGER MD
--- NOTE | 2018-08-16 10:12 | EKG ---
Test Reason : Blood Pressure : / mmHG Vent. Rate : 079 BPM Atrial Rate : 079 BPM P-R Int : 142 ms QRS Dur : 084 ms QT Int : 378 ms P-R-T Axes : 057 082 042 degrees QTc Int : 433 ms NORMAL SINUS RHYTHM NORMAL ECG WHEN COMPARED WITH ECG OF 14-AUG-2018 10:47, NO SIGNIFICANT CHANGE WAS FOUND Confirmed by BRYSON HERNANDEZ MD ([id number]) on 08/16/2018 10:12:20 AM Referred By: Melida Bejarano Confirmed By:BRYSON HERNANDEZ MD
== END 2018-08-15 11:20 | disposition left against medical advice (07) | DRG 683 ==
LOC: FER 09:55 → FM/S 13:47
PROVIDERS: ADMIT Hospitalist; ATTEND Nurse Practitioner Acute Care
DX: N17.9 Acute kidney failure, unspecified (principal); E87.1 Hypo-osmolality and hyponatremia; M62.82 Rhabdomyolysis; R11.2 Nausea with vomiting, unspecified; E86.0 Dehydration; F17.210 Nicotine dependence, cigarettes, uncomplicated; D72.829 Elevated white blood cell count, unspecified; G43.D0 Abdominal migraine, not intractable; F12.10 Cannabis abuse, uncomplicated; I16.0 Hypertensive urgency; E83.42 Hypomagnesemia; E83.39 Other disorders of phosphorus metabolism; I12.9 Hypertensive chronic kidney disease with stage 1 through stage 4 chronic kidney disease, or unspecified chronic kidney disease; N18.9 Chronic kidney disease, unspecified
CPT/HCPCS: 36415; 71046-TC-FY; 74176-TC; 80048; 80053; 80307; 81003; 81015; 82550; 82553; 82570; 83690; 83735; 83880; 84100; 84156; 84443; 85025; 85610; 85730; 87086; 93005; 97116-GP; 97161-GP; 99285-25; J7030

== ENCOUNTER 2019-08-16 09:15 | Emergency (ER) | payer OTHER ==
--- NOTE | 2019-08-16 09:22 | PDOC ---
History of Present Illness - General Chief Complaint: Nausea/Vomiting Stated Complaint: VOMITING Time Seen by Provider: 08/16/19 09:21 - History of Present Illness Initial Comments: 08/16/19 10:21 Chief complaint: Nausea and vomiting HPI: Nausea, vomiting, and retching for 2 days, clear fluid, no blood. Intermittent crampy abdominal pain. No pain at present. No diarrhea. Review of systems: Denies headache, fever/chills, URI symptoms, sore throat, cough, chest pain, shortness of breath, hematemesis, melena, bloody stool, urinary tract symptoms, lightheadedness or dizziness, visual or focal neurologic symptoms, unsteadiness of gait. Remainder of systems reviewed and negative Past medical history: Similar episodes in the past, thought to be related to the use of marijuana. The patient regularly smokes marijuana from different sources. Anxiety. Depression. Renal dysfunction. Social history: Denies alcohol, denies drugs other than marijuana, denies intravenous drug use, denies tobacco. Family history reviewed and noncontributory Physical exam: Alert and oriented, somewhat thin, no acute distress, no retching or vomiting at present. Cooperative Afebrile, vital signs normal except for elevated pulse and blood pressure. PERRLA 3 mm, fundi benign, ENT clear except for dry mucous membranes Neck supple without bruit mass or nodes Chest clear, full breath sounds bilaterally CV regular without murmur rub or gallop pulses full and symmetric no JVD or edema no bruits 120 and regular Abdomen nondistended. Bowel sounds normal. Mild diffuse tenderness to deep palpation without localization. No guarding or rebound. Extremities no CCE Neurological C2 to 12 intact. Strength full and symmetric. No focal sensorimotor deficits. Cerebellar function intact. Gait stable and unimpaired Impression: Nausea, vomiting, and retching by history. No obvious symptoms at present. Possibly related to drug use. Elevated blood pressure and pulse may be a result of exposure to illicit drugs either in marijuana or separately. Plan: CBC, chemistries, lipase, urinalysis, and drug screen, intravenous fluids and Zofran, further observation and treatment depending on results of testing and response to therapy. Past History - Past Medical History Allergies/Adverse Reactions: Allergies Allergy/AdvReac Type Severity Reaction Status Date / Time No Known Allergies Allergy Verified 08/16/19 09:27 Home Medications: Ambulatory Orders Bupropion HCl [Wellbutrin -] 100 mg PO TID 08/16/19 Ondansetron [Zofran *Odt*] 4 - 8 mg SL TID PRN #15 od.tablet 08/16/19 COPD: No GI Disorders: Yes (CYCLIC VOMITING) - Psycho Social/Smoking Cessation Hx Smoking History: Current every day smoker Have you smoked in the past 12 months: Yes Number of Cigarettes Smoked Daily: 2 'Breaking Loose' booklet given: 08/14/18 Hx Alcohol Use: Yes Drug/Substance Use Hx: Yes Substance Use Type: Marijuana ED Treatment Course - LABORATORY CBC & Chemistry Diagram: 08/16/19 10:00 08/16/19 10:00 Medical Decision Making - Medical Decision Making 08/16/19 10:30 Repeat BP 197/122. This might suggest exposure to amphetamines or other drugs. The patient states that when he is experiencing his symptoms his blood pressure is always high, but it is not elevated otherwise. Labetalol ordered. Will obtain drug screen and afterwards also consider benzodiazepine 08/16/19 10:55 Further history was obtained. The patient has been diagnosed with abdominal migraine in the past. He has received valproic acid and monoclonal antibody therapy. This is in addition to marijuana abuse. He has also had significantly elevated white blood counts and acute kidney insufficiency with these episodes. Today the white blood count is 28,000, creatinine 6.2 and BUN 45. 08/16/19 11:55 Patient received 3 L of intravenous saline as well as Zofran. He feels much better. He is ambulating without difficulty and there is been no further nausea , vomiting, or retching. However, blood pressure remains moderately elevated, and in view of the compromised renal function and elevated white count, hospital admission was recommended. The risk of heart attack, stroke, and kidney damage was thoroughly discussed. However, the patient refuses admission, prefers to seek treatment with prior providers at [facility]. Patient signed out AMA. Discharge - Discharge Information Problems reviewed: Yes Clinical Impression/Diagnosis: Viral gastroenteritis, Elevated blood pressure reading, Renal insufficiency Condition: Improved Disposition: AGAINST MEDICAL ADVICE - Admission No - Additional Discharge Information Prescriptions: Ondansetron [Zofran *Odt*] 4 - 8 mg SL TID PRN #15 od.tablet PRN Reason: Nausea And/Or Vomiting - Follow up/Referral Referrals: Luna Carrasco [Primary Care Provider] - 24 hours - Patient Discharge Instructions Patient Printed Discharge Instructions: DI for Nausea -- Adult, DI for Vomiting -- Adult Additional Instructions: Clear liquid diet until symptoms resolved. Drink a lot of fluids and rest. Recheck if there are fever/chills, increased pain, or increased vomiting or diarrhea. - Post Discharge Activity
[2019-08-16] MEDS ORDERED: ONDANSETRON 4 MG/2 ML VIAL IVPB ONE (09:23)
[2019-08-16] MEDS ORDERED: SODIUM CHLORIDE 1,000 ML IV STA ×2 (09:23→11:17)
[2019-08-16 09:35] VITALS: TEMP 97.4; BMI 25.1
[2019-08-16] MEDS ORDERED: ONDANSETRON 4 MG/2 ML VIAL ONE (09:40)
[2019-08-16 10:10] LABS: HEMATOCRIT 54.2 % (35.4-49); HEMOGLOBIN 18.5 GM/dl (11.7-16.9); MCH 31.2 pg (25.7-33.7); MCHC 34.2 g/dl (32.0-35.9); MEAN CELL VOLUME 91.2 fl (80-96); MEAN PLT VOLUME 9.4 fl (7.5-11.1); PLATELET COUNT 468 K/MM3 (134-434); RBC 5.94 M/mm3 (4.00-5.60); RDW 13.3 % (11.9-15.9); WHITE BLOOD COUNT 28.5 K/mm3 (4.0-10.8)
[2019-08-16 10:20] LABS: ALBUMIN 6.1 g/dl (3.4-5.0); BILIRUBIN,TOTAL 0.8 mg/dl (0.2-1); CALCIUM 10.4 mg/dl (8.5-10); CREATININE 6.2 mg/dl (0.55-1.3); POTASSIUM 4.3 mmol/L (3.5-5.1); TOT PROT 10.2 g/dl (6.4-8.2)
[2019-08-16] MEDS ORDERED: LABETALOL HCL 5 MG/1 ML (100MG/20 ML VIAL) IVPUSH ONE ×2 (10:29→11:16)
[2019-08-16] MEDS ORDERED: LABETALOL HCL 5 MG/1 ML (100MG/20 ML VIAL) ONE (10:32)
[2019-08-16 11:11] LABS: PLATELET ESTIMATE SLT INCREASE
[2019-08-16 11:45] VITALS: BP 182/119; PULSE 96
[2019-08-16 12:56] LABS: EPITHELIAL CELLS MODERATE /hpf
[2019-08-16 12:57] LABS: AMORP URATES 1+ /hpf (NONE SEEN)
[2019-08-16 13:06] LABS: COCAINE, UR NEGATIVE ng/ml (CUTOFF=300); METHADONE, UR NEGATIVE ng/ml (CUTOFF=300); OPIATES, URI NEGATIVE ng/ml (CUTOFF=300); PHENCYCLIDINE,URINE NEGATIVE ng/ml (CUTOFF=25); URINE AMPHETAMINES NEGATIVE ng/ml (CUTOFF=500); URINE BARBITURATES NEGATIVE ng/ml (CUTOFF=200); URINE BENZODIAZEPINES NEGATIVE ng/ml (CUTOFF=200)
== END 2019-08-16 12:02 | disposition left against medical advice (07) ==
LOC: FER 09:15
PROC: 3E033GC Introduction of Other Therapeutic Substance into Peripheral Vein, Percutaneous Approach (ICD-10-PCS; principal; 2019-08-16)
PROC: 3E033GC Introduction of Other Therapeutic Substance into Peripheral Vein, Percutaneous Approach (ICD-10-PCS; 2019-08-16)
PROC: 3E0337Z Introduction of Electrolytic and Water Balance Substance into Peripheral Vein, Percutaneous Approach (ICD-10-PCS; 2019-08-16)
DX: Z01.31 Encounter for examination of blood pressure with abnormal findings (principal); A08.4 Viral intestinal infection, unspecified; N28.9 Disorder of kidney and ureter, unspecified; F17.210 Nicotine dependence, cigarettes, uncomplicated
CPT/HCPCS: 36415; 80053; 80307; 81003; 81015; 83690; 85025; 99284-25; J7030

== ENCOUNTER 2019-08-30 19:27 | Emergency (ER) | payer OTHER ==
[2019-08-30 19:37] VITALS: BP 167/100; TEMP 97.9; BMI 35.3
[2019-08-30] MEDS ORDERED: ONDANSETRON 4 MG/2 ML VIAL IVPB ONE (19:55)
[2019-08-30] MEDS ORDERED: SODIUM CHLORIDE 1,000 ML IV ONE ×2 (19:55→20:41)
[2019-08-30] MEDS ORDERED: ONDANSETRON 4 MG/2 ML VIAL ONE (20:00)
[2019-08-30 20:19] LABS: BASO % 1.7 % (0-2.0); HEMATOCRIT 53.9 % (35.4-49); HEMOGLOBIN 18.2 GM/dl (11.7-16.9); LYMPH % 17.7 % (8-40); MCHC 33.8 g/dl (32.0-35.9); MEAN CELL VOLUME 91.7 fl (80-96); MEAN PLT VOLUME 8.3 fl (7.5-11.1); MONO % 8.1 % (3.8-10.2); NEUT % 72.5 % (42.8-82.8); PLATELET COUNT 605 K/MM3 (134-434); RBC 5.89 M/mm3 (4.00-5.60); RDW 12.3 % (11.9-15.9); WHITE BLOOD COUNT 17.2 K/mm3 (4.0-10.8)
[2019-08-30 20:28] LABS: ALBUMIN 5.5 g/dl (3.4-5.0); BILIRUBIN,TOTAL 0.7 mg/dl (0.2-1); CALCIUM 10.8 mg/dl (8.5-10); CREATININE 2.6 mg/dl (0.55-1.3); POTASSIUM 3.8 mmol/L (3.5-5.1); TOT PROT 9.2 g/dl (6.4-8.2)
--- NOTE | 2019-08-30 21:52 | PDOC ---
Documentation entered by Forest Pickering SCRIBE, acting as scribe for Randa Todd MD. Randa Todd MD: This documentation has been prepared by the Raheel springer Daniel, SCRIBE, under my direction and personally reviewed by me in its entirety. I confirm that the documentation accurately reflects all work , treatment, procedures, and medical decision making performed by me. History of Present Illness - General Chief Complaint: Nausea/Vomiting Stated Complaint: CYCLIC VOMITING History Source: Patient Exam Limitations: No Limitations - History of Present Illness Initial Comments: 08/30/19 20:19 The patient is a 39 year old male with a past medical history of WENDY and retirement marijuana use here today for evaluation of vomiting. The patient reports that he has had cyclical vomiting in the past that was alleviated when he stopped smoking marijuana. He reports that he started smoking marijuana again 3 weeks ago and that his last episode of vomiting was a few hours prior to arrival. Patient was admitted to a hospital in [place] and was discharged last (08/23/19) and states that his kidney function was fine at that time. Patient denies headache, lightheadedness. Denies fever, chills. Denies chest pain, shortness of breath. Denies diarrhea, abdominal pain. Allergies: NKA PCP: Luna GARRETT General: No fevers or chills, no weakness, no weight loss HEENT: No change in vision. No sore throat,. No ear pain CardioVascular: No chest pain or shortness of breath Respiratory:No cough, or wheezing. Gastrointestinal: +nausea. +vomiting. no diarrhea or constipation, No rectal bleeding Genitourinary: No dysuria, hematuria, or frequency Musculoskeletal: No joint or muscle pain or swelling Neurologic: No headache, vertigo, dizziness or loss of consciousness Psychiatric: nor depression Skin: No rashes or easy bruising Endocrine: no increased thirst or abnormal weight change Allergic: no skin or latex allergy All other systems reviewed and normal PE General: Well-nourished well-developed individual, no acute distress HEENT: +dry mucous membranes. Throat: Normal, tonsils normal, no erythema or exudate Neck: Supple, no meningeal signs, no lymphadenopathy Eyes::Pupils equal reactive and round, extraocular motion intact Chest: Nontender to palpation Cardiac: S1-S2 normal, regular rate and rhythm, no murmurs rubs or gallops Respiratory: Lungs clear to auscultation bilateral Abdomen: Soft, nondistended, normal bowel sounds, nontender to palpation diffusely Extremities: Warm, dry, no cyanosis, clubbing, or edema Skin: No rashes Neuro: Alert and oriented x3, nonfocal exam, grossly intact, normal gait Psych: Normal mood and affect 08/30/19 21:48 Assessment and plan: This is a 39-year-old male with 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 Patient has stopped using marijuana for several years and now recently started using it again with return of his cyclic vomiting. Reevaluation patient is received 2 L of fluid and feels much better no further vomiting in the ED. Patient appears to be hydrated at this point. Patient's labs do show a elevated white count which is improved from when he was here last in addition to that his renal function is improving from prior visit on the of last month. Patient counseled to stop smoking marijuana as this is most likely the cause of his cyclic vomiting and follow-up with his primary care doctor. Past History - Past Medical History Allergies/Adverse Reactions: Allergies Allergy/AdvReac Type Severity Reaction Status Date / Time No Known Allergies Allergy Verified 08/16/19 09:27 Home Medications: Ambulatory Orders Ondansetron [Zofran *Odt*] 8 mg SL TID #20 od.tablet 08/30/19 Ondansetron [Zofran -] 4 mg PO PRN PRN 08/30/19 COPD: No GI Disorders: Yes (CYCLIC VOMITING) Disorders: Yes (WENDY) - Psycho Social/Smoking Cessation Hx Smoking History: Current every day smoker Have you smoked in the past 12 months: Yes Number of Cigarettes Smoked Daily: 2 'Breaking Loose' booklet given: 08/14/18 Hx Alcohol Use: Yes Drug/Substance Use Hx: Yes Substance Use Type: Marijuana Review of Systems - Review of Systems Able to Perform ROS?: Yes *Physical Exam - Vital Signs Last Vital Signs Temp Pulse Resp BP Pulse Ox 97.9 F 127 H 16 167/100 98 08/30/19 19:33 08/30/19 19:33 08/30/19 19:33 08/30/19 19:33 08/30/19 19:33 ED Treatment Course - LABORATORY CBC & Chemistry Diagram: 08/30/19 20:05 08/30/19 20:05 - ADDITIONAL ORDERS Additional order review: Laboratory Results 08/30/19 20:05 Sodium 129 L Potassium 3.8 Chloride 85 L Carbon Dioxide 26 Anion Gap 18 H BUN 28.0 H Creatinine 2.6 H Est GFR (CKD-EPI)AfAm 34.22 Est GFR (CKD-EPI)NonAf 29.52 Random Glucose 131 H Calcium 10.8 H Total Bilirubin 0.7 AST 23 ALT 38 Alkaline Phosphatase 77 D Total Protein 9.2 H Albumin 5.5 H 08/30/19 20:05 RBC 5.89 H MCV 91.7 MCHC 33.8 RDW 12.3 MPV 8.3 D Neutrophils % 72.5 Lymphocytes % 17.7 Monocytes % 8.1 Eosinophils % 0.0 D Basophils % 1.7 D - Medications Given in the ED: ED Medications Discontinued Medications Generic Name Dose Route Start Last Admin Trade Name Freq PRN Reason Stop Dose Admin Sodium Chloride 1,000 mls @ 1,000 mls/hr 08/30/19 19:55 08/30/19 20:05 Normal Saline - IV 08/30/19 20:54 1,000 mls/hr .Q1H ONE Administration Sodium Chloride 1,000 mls @ 1,000 mls/hr 08/30/19 20:41 08/30/19 20:53 Normal Saline - IV 08/30/19 21:40 1,000 mls/hr .Q1H ONE Administration Ondansetron HCl 8 mg 08/30/19 19:55 08/30/19 20:06 Zofran Injection IVPB 08/30/19 19:56 8 mg ONCE ONE Administration Discharge - Discharge Information Problems reviewed: Yes Clinical Impression/Diagnosis: Cannabinoid hyperemesis syndrome Condition: Stable Disposition: HOME - Admission No - Follow up/Referral Referrals: Luna Carrasco [Primary Care Provider] - - Patient Discharge Instructions Additional Instructions: Any continued use of marijuana well because return of your vomiting symptoms it is important that you stop all use of marijuana and marijuana products. For nausea take Zofran 1 tablet as often as every 8-12 hours/ Return to the emergency department immediately with ANY new, persistent or worsening symptoms. Continue any medications as previously prescribed by your physician. You should follow up with your primary doctor as soon as possible regarding today's emergency department visit. . Please make sure your doctor reviews the results of your emergency evaluation. Thank you for coming to the Emergency Department today for your care. It was a pleasure to see you today. Please note that your evaluation is INCOMPLETE until you follow-up with your doctor. - Post Discharge Activity
[2019-08-30 22:05] VITALS: PULSE 114
== END 2019-08-30 22:06 | disposition home or self-care (01) ==
LOC: FER 19:27
PROC: 3E033GC Introduction of Other Therapeutic Substance into Peripheral Vein, Percutaneous Approach (ICD-10-PCS; principal; 2019-08-30)
PROC: 3E0337Z Introduction of Electrolytic and Water Balance Substance into Peripheral Vein, Percutaneous Approach (ICD-10-PCS; 2019-08-30)
DX: R11.10 Vomiting, unspecified (principal); F17.210 Nicotine dependence, cigarettes, uncomplicated; N17.9 Acute kidney failure, unspecified
CPT/HCPCS: 36415; 80053; 85025; 99283-25; J7030